=== PATIENT | female | born 1960 | race Caucasian/White ===

== ENCOUNTER 2016-11-24 22:48 | Inpatient (IN) | payer BC, MEDICAID ==
[~2016-11-24] VITALS: Ht 160 cm; Wt 106.6 kg
[~2016-11-24 22:48] MED LIST: HYDR-3026 PO; HYDR-552 PO; LORA1TAB PO; ONDA8TAB6 PO; TRAZ-144 PO
--- NOTE | 2016-11-25 02:06 | NUR ---
56 yo female bb self. pt is alertx 3, c/o N/V/D X3 DAYS with headache. pt ambulated to er bed, skin warm and dry, rr even and unlabored.. 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 awaiting orders from provider, will continue to monitor
[2016-11-25] MEDS ORDERED: ONDANSETRON HCL/PF 4 MG/2 ML VIAL ONE ×2 (02:15→03:17)
[2016-11-25] MEDS ORDERED: HYDROMORPHONE 1 MG/1 ML DISP.SYRIN ONE ×2 (02:16→03:17)
--- NOTE | 2016-11-25 02:16 | NUR ---
CALLED [facility] [place] FOR RADIOLOGY CONSULT. DR. MOODY TRANSFERED TO DR HAND.
[2016-11-25] MEDS ORDERED: IV NS 0.9% 1,000 ML BAG IV ONE (02:30)
[2016-11-25] MEDS ORDERED: HYDROMORPHONE INJ 2 MG/ML DISP.SYRIN IV ONE ×2 (02:30→05:30)
[2016-11-25] MEDS ORDERED: ONDANSETRON HCL/PF 4 MG/2 ML VIAL IVP ONE (02:30)
[2016-11-25 02:41] LABS: BASOPHILS % (AUTO) 0.5 % (0.0-2.0); EOSINOPHILS # (AUTO) 0.2 /CMM (0.0-0.7); EOSINOPHILS % (AUTO) 2.1 % (0.0-6.0); HEMATOCRIT 40 % (33-45); HEMOGLOBIN 13.1 g/dL (11.5-14.8); LYMPHOCYTES # (AUTO) 3.5 /CMM (0.8-4.8); LYMPHOCYTES % (AUTO) 45.5 % (20.0-44.0); MEAN CORPUSCULAR HEMOGLOBIN 28 PG (26.0-33.0); MEAN CORPUSCULAR HGB CONC 33 g/dl (31.0-36.0); MEAN CORPUSCULAR VOLUME 85 fL (82-100); MONOCYTES # (AUTO) 0.7 /CMM (0.1-1.30); NEUTROPHILS # (AUTO) 3.3 /CMM (1.8-8.9); NEUTROPHILS % (AUTO) 42.9 % (43.0-81.0); PLATELET COUNT (AUTO) 264 /CMM (150-450); RDW COEFFICIENT OF VARIATION 15.9 (11.5-15.0); RED BLOOD CELL COUNT(AUTO) 4.66 MIL/uL (4.0-5.2); WHITE BLOOD COUNT (AUTO) 7.7 K/uL (4.3-11.0)
[2016-11-25 02:44] LABS: APPEARANCE,URINE SL CLOUDY (CLEAR); BILIRUBIN,URINE 1+ (NEGATIVE); BLOOD, URINE NEGATIVE Ery/uL (NEGATIVE); COLOR,URINE YELLOW (YELLOW); KETONES,URINE 1+ (NEGATIVE); LEUKOCYTE ESTERASE ,URINE 1+ (NEGATIVE); NITRITE, URINE NEGATIVE (NEGATIVE); PROTEIN,URINE 2+ mg/dl (NEGATIVE); UGLUCOSE NEGATIVE (NEGATIVE)
[2016-11-25] MEDS ORDERED: IOHEXOL-300 100 ML VIAL IV ONE (02:44)
[2016-11-25] MEDS ORDERED: DIATR MEGLU/DIATRIZOATE SODIUM 120 ML BOTTLE (GASTROGRAPHIN) ONE (02:46)
[2016-11-25 02:56] LABS: BACTERIA,URINE 1+ /HPF (None Seen); RBC,URINE 0-2 /HPF (0-2); WBC,URINE 20-30 /HPF (0-3)
[2016-11-25 02:57] LABS: CALCIUM OXALATE CRYSTALS,UR Many /HPF (None Seen); MUCUS,URINE Moderate /LPF (None Seen); SQUAMOUS EPITHELIAL CELL,UR Many /HPF (None Seen)
[2016-11-25 03:05] LABS: CALCIUM, SERUM 8.9 mg/dL (8.5-10.1); CREATININE 0.8 mg/dL (0.6-1.3)
[2016-11-25 03:07] LABS: POTASSIUM 2.8 mmol/L (3.5-5.1)
[2016-11-25] MEDS ORDERED: POTASSIUM CL. PREMIX PERIPHER. 50 ML ONE ×2 (03:10→04:47)
[2016-11-25] MEDS ORDERED: Magnesium 1GM/D5W 100ML PREMIX 200 ML IV ONE (03:10)
--- NOTE | 2016-11-25 03:20 | NUR ---
medicated pt as ordered
[2016-11-25 03:23] LABS: BILIRUBIN,DIRECT 0.2 mg/dL (0.0-0.2); BILIRUBIN,TOTAL 0.7 mg/dL (0.2-1.0)
[2016-11-25 03:24] LABS: ALBUMIN 3.3 g/dL (3.4-5.0); TOTAL PROTEIN, SERUM 7.2 g/dL (6.4-8.2)
[2016-11-25 03:28] LABS: INR 1.1 (0.87-1.13); PROTHROMBIN TIME 11.8 SECS (9.5-12.7)
[2016-11-25] MEDS ORDERED: Magnesium 1 GM/2 ML VIAL IV ONE (03:30)
[2016-11-25] MEDS: POTASSIUM CL. PREMIX PERIPHER. 50 ML IV SCH ×4 (03:45→06:30)
[2016-11-25] MEDS ORDERED: DIATR MEGLU/DIATRIZOATE SODIUM 30 ML BOTTLE (GASTROGRAPHIN) ONE (04:22)
[2016-11-25] MEDS ORDERED: ONDANSETRON HCL/PF 4 MG/2 ML VIAL IV ONE (04:30)
[2016-11-25] MEDS ORDERED: HYDROMORPHONE 1 MG/1 ML DISP.SYRIN IV ONE (04:30)
[2016-11-25] MEDS ORDERED: HYDROMORPHONE INJ 2 MG/ML DISP.SYRIN ONE (05:15)
[2016-11-25] MEDS ORDERED: CEFTRIAXONE 1GM BAG (ER ONLY) 50 ML IV ONE (05:19)
[2016-11-25] MEDS ORDERED: CEFTRIAXONE 1GM BAG (ER ONLY) 1 GM/50 ML PIGGYBACK IV ONE (05:30)
--- NOTE | 2016-11-25 05:38 | NUR ---
REPORT GIVEN TO RN FOR FABIOLA
--- NOTE | 2016-11-25 06:20 | NUR ---
RN NOTES ADMITTED A 56 YEARS OLD, FEMALE PT FROM ER VIA [facility] ACCOMPANIED BY ER NURSE WITH PRIMARY DIAGNOSIS OF NAUSEA AND VOMITING UNDER DR RODGERS. PT ALERT AND ORIENTED X3, NO SOB, NOT IN DISTRESS, ON 2LPM O2 VIA NC WITH GOOD SATURATION. VITAL SIGNS, BP 152/80 HR 66 T97.6 RR18 O2SAT 96%. PT DENIES ANY PAIN AND DISCOMFORT AT THIS TIME. PT AMBULATORY WITH STEADY GAIT. KEPT COMFORTABLE AND ATTENDED. ALL ORDERS NOTED AND CARRIED OUT. WILL ENDORSE TO MORNING RN TO CONTINUE ADMISSION AND PLAN OF CARE.
[2016-11-25] MEDS ORDERED: ONDANSETRON HCL/PF 4 MG/2 ML VIAL IVP PRN (06:30)
[2016-11-25] MEDS ORDERED: ACETAMINOPHEN 325 MG TABLET PO PRN (06:30)
[2016-11-25] MEDS ORDERED: MAGNESIUM HYDROXIDE 30 ML UDC PO PRN (06:30)
[2016-11-25] MEDS ORDERED: Z GUARD REMEDY 2 OZ OINT TP PRN (06:30)
[2016-11-25] MEDS ORDERED: HYDROCODONE/APAP 5/325MG 1 EACH TABLET PO PRN ×2 (06:30→12:30)
[2016-11-25] MEDS ORDERED: ZOLPIDEM TARTRATE 5 MG TABLET PO PRN (06:30)
--- NOTE | 2016-11-25 07:55 | NUR ---
MS RN RECEIVED ON BED, AWAKE,ALERT,ORIENTED X3,CAME W/ NAUSEA AND VOMITING, DENIES PAIN AT THIS TIME, NEEDS ATTENDED, WILL MONITOR PATIENT'S CONDITION.
[2016-11-25 08:00] VITALS: BP 158/76
[2016-11-25] MEDS ORDERED: hydrOXYzine PAMOATE 25 MG CAPSULE PO PRN (09:00)
[2016-11-25] MEDS ORDERED: LORAZEPAM 1 MG TABLET PO SCH (09:00)
--- NOTE | 2016-11-25 09:00 | NUR ---
ms rn due meds given,tolerated well.
[2016-11-25] MEDS: Potassium Chloride 10 MEQ, LIDOCAINE HCL/PF 1% 1 ML in IV D5W 50 ML IV SCH ×2 (10:58→12:40)
--- NOTE | 2016-11-25 12:00 | NUR ---
ms nina waiting for dr. horne to see patient.
[2016-11-25] MEDS ORDERED: Medication Not On Formulary EA (Ondansetron Hcl (Zofran) 8 MG) PO PRN (12:30)
--- NOTE | 2016-11-25 13:00 | NUR ---
ms nina horne came to see patient w/ order to go home w/ prescription.
--- NOTE | 2016-11-25 15:30 | NUR ---
ms rn patient went home w/ prescription , refused to take pictures w/ left arm wound.discahrge instructions given and well understood.
[2016-11-25] MEDS ORDERED: TRAZODONE 50 MG TABLET PO SCH (22:00)
[2016-11-26] MEDS ORDERED: CEFTRIAXONE 1 G in IV D5W 50 ML IV SCH (06:00)
== END 2016-11-25 15:02 | disposition home or self-care (01) | DRG 384 ==
LOC: ER 22:51 → MED 11-25 06:08
PROVIDERS: ADMIT Family Medicine; ATTEND Family Medicine
DX: K25.9 Gastric ulcer, unspecified as acute or chronic, without hemorrhage or perforation (principal); E86.0 Dehydration; E87.6 Hypokalemia; G47.30 Sleep apnea, unspecified; K21.9 Gastro-esophageal reflux disease without esophagitis; J45.909 Unspecified asthma, uncomplicated; K42.9 Umbilical hernia without obstruction or gangrene; K52.9 Noninfective gastroenteritis and colitis, unspecified; K76.0 Fatty (change of) liver, not elsewhere classified; Z82.49 Family history of ischemic heart disease and other diseases of the circulatory system; Z90.710 Acquired absence of both cervix and uterus; Z98.84 Bariatric surgery status; Z87.11 Personal history of peptic ulcer disease
CPT/HCPCS: 36415; 80048-TC; 80076-TC; 81000-TC; 83690-TC; 85025-TC; 85730-TC; 87081-TC; 87086-TC; A4606; J0696; J1170; J2405; J3475; J3480; J3490; J7030; J7050; J7060; Q9963; Q9967; Z7610